=== PATIENT | female | born 1950 | race Hispanic/Latino ===

== ENCOUNTER 2021-01-13 11:00 | Inpatient (IN) | payer MEDICARE ==
[~2021-01-13] VITALS: Ht 154.9 cm; Wt 54.0 kg
[2021-01-16 13:04] LABS: BASOPHILS % (AUTO) 1.6 % (0.0-5.0); EOSINOPHILS % (AUTO) 2.6 % (0.0-8.0); HEMATOCRIT 32.7 % (36-48); LYMPHOCYTES % (AUTO) 18.7 % (21.0-51.0); MEAN CORPUSCULAR HEMOGLOBIN 31.8 pg (27.0-33.0); MEAN CORPUSCULAR HGB CONC 32.4 g/dL (32.0-36.0); MEAN CORPUSCULAR VOLUME 98.2 fL (79-99); MONOCYTES % (AUTO) 6.1 % (3.0-13.0); NEUTROPHILS % (AUTO) 70.8 % (40.0-77.0); PLATELET COUNT (AUTO) 149 K/uL (130-400); RED BLOOD CELL COUNT(AUTO) 3.33 MIL/uL (4.00-5.50); RED CELL DISTRIBUTION WIDTH 13.2 % (11.0-15.5); WHITE BLOOD COUNT (AUTO) 4.9 K/uL (4.8-10.8)
[2021-01-16 13:16] LABS: ALBUMIN 3.4 g/dL (3.5-5.0); BILIRUBIN,TOTAL 0.4 mg/dL (0.2-1.0); CREATININE 3.5 mg/dL (0.5-1.5); POTASSIUM 3.7 mmol/L (3.5-5.1); TOTAL PROTEIN, SERUM 7.1 g/dL (6.0-8.3)
[2021-01-16 13:22] LABS: INR 1.23 (0.85-1.15); PROTHROMBIN TIME 13.2 SEC (9.6-11.6)
[2021-01-16 13:23] LABS: PARTIAL THROMBOPLASTIN TIME 32.8 SEC (26.3-35.5)
[2021-01-17 12:58] VITALS: BP 165/53
[2021-01-17] MEDS ORDERED: AMLO-258 PO (13:49)
[2021-01-17] MEDS ORDERED: PRAV10TA39 PO (13:49)
[2021-01-17] MEDS ORDERED: INS7030 SQ (13:49)
[2021-01-17] MEDS ORDERED: LISI40TA9 PO (13:49)
[2021-01-17] MEDS ORDERED: AEC81 PO (13:49)
[2021-01-17] MEDS ORDERED: METO100T14 PO (13:49)
[2021-01-17] MEDS ORDERED: TRAZ-185 PO (13:49)
[2021-01-17] MEDS ORDERED: DOXE75CA3 PO (13:49)
[2021-01-17] MEDS ORDERED: LEVO112C4 PO (13:49)
[2021-01-17] MEDS ORDERED: SEVE800T7 PO (13:49)
[2021-01-17] MEDS ORDERED: TRAM50TA4 PO (13:49)
[2021-01-17] MEDS ORDERED: HYDR-4153 PO (13:49)
[2021-01-17] MEDS ORDERED: ACET-3194 PO (13:49)
[2021-01-17] MEDS ORDERED: LOPE2TAB26 PO (13:49)
[2021-01-17] MEDS ORDERED: LORA-192 PO (13:49)
[2021-01-20] VITALS (18 sets, daily range): BP systolic 130–151; BP diastolic 42–54
[2021-01-20] MEDS ORDERED: VANCOMYCIN 1G/250ML KIT 250 ML IV ONE (07:51)
[2021-01-20] MEDS ORDERED: 0.9% NACL 500ML IV.SOLN 500 ML IV ONE (07:51)
[2021-01-20] MEDS ORDERED: LIDOCAINE PF 100MG/5ML (2%) SYRINGE 5ML ONE (08:26)
[2021-01-20] MEDS ORDERED: PROPOFOL 10 MG/ML 20ML VIAL IV ONE (08:26)
[2021-01-20] MEDS ORDERED: ONDANSETRON 4MG INJ ONE (08:26)
[2021-01-20] MEDS ORDERED: ROCURONIUM 10MG/1ML SYR 10 MG/ML ML ONE ×2 (08:26→08:46)
[2021-01-20 08:27] LABS: POTASSIUM 4.4 mmol/L (3.5-5.1)
[2021-01-20] MEDS ORDERED: PHENYLEPHRINE HCL 10 MG/ML 1ML VIAL IV ONE (09:05)
[2021-01-20] MEDS ORDERED: EPHEDRINE SULFATE 50 MG/ML AMPULE ONE (09:05)
[2021-01-20] MEDS ORDERED: GLYCOPYRROLATE 1 MG/5 ML SYRINGE ONE (09:21)
[2021-01-20] MEDS ORDERED: HEPARIN 10,000 UNIT/10ML (1,000 UNIT/ML) VIAL ONE (10:09)
[2021-01-20] MEDS ORDERED: PROTAMINE SULFATE 10 MG/ML 25ML VIAL IV ONE (11:20)
[2021-01-20] MEDS ORDERED: NEOSTIGMINE 5MG/5ML SYR IV ONE (11:59)
== END 2021-01-20 14:00 | disposition home or self-care (01) | DRG 252 ==
LOC: EDSTATUS 01-16 13:00 → DAHIP 01-20 07:23 → UNDOADMIN 01-20 07:35
PROVIDERS: ADMIT Student in an Organized Health Care Education/Training Program; ATTEND Student in an Organized Health Care Education/Training Program
PROC: B5181ZA Fluoroscopy of Superior Vena Cava using Low Osmolar Contrast, Guidance (ICD-10-PCS; 2021-01-20)
PROC: B548ZZA Ultrasonography of Superior Vena Cava, Guidance (ICD-10-PCS; 2021-01-20)
PROC: 02HV33Z Insertion of Infusion Device into Superior Vena Cava, Percutaneous Approach (ICD-10-PCS; principal; 2021-01-20 08:30)
PROC: 03U Upper Arteries, Supplement (ICD-10-PCS; 2021-01-20 08:30)
DX: I72.1 Aneurysm of artery of upper extremity (principal); N18.6 End stage renal disease; I12.0 Hypertensive chronic kidney disease with stage 5 chronic kidney disease or end stage renal disease; E11.22 Type 2 diabetes mellitus with diabetic chronic kidney disease; Z20.822 Contact with and (suspected) exposure to COVID-19; Z96.649 Presence of unspecified artificial hip joint; Z79.4 Long term (current) use of insulin; Z88.0 Allergy status to penicillin; Z90.49 Acquired absence of other specified parts of digestive tract; Z80.9 Family history of malignant neoplasm, unspecified
CPT/HCPCS: 36415; 71045; 77002; 80048; 80053; 82948; 85025; 85610; 85730; 87635; 88304; 93005; A4606; C1750; G0378; J1644; J2001; J2370; J2405; J2704; J2710; J2720; J3370; J3490; J7040

== ENCOUNTER 2021-06-13 08:59 | Observation (INO) | payer MEDICARE ==
[2021-05-28 10:35] LABS: BASOPHILS % (AUTO) 2.2 % (0.0-5.0); EOSINOPHILS % (AUTO) 4.7 % (0.0-8.0); HEMATOCRIT 34.1 % (36-48); LYMPHOCYTES % (AUTO) 19.8 % (21.0-51.0); MEAN CORPUSCULAR HEMOGLOBIN 31.1 pg (27.0-33.0); MEAN CORPUSCULAR VOLUME 97.2 fL (79-99); MONOCYTES % (AUTO) 5.3 % (3.0-13.0); PLATELET COUNT (AUTO) 125 K/uL (130-400); RED BLOOD CELL COUNT(AUTO) 3.51 MIL/uL (4.00-5.50); RED CELL DISTRIBUTION WIDTH 13.6 % (11.0-15.5); WHITE BLOOD COUNT (AUTO) 5.1 K/uL (4.8-10.8)
[2021-05-28 10:47] LABS: INR 1.13 (0.85-1.15); PROTHROMBIN TIME 12.2 SEC (9.6-11.6)
[2021-05-28 10:48] LABS: PARTIAL THROMBOPLASTIN TIME 32.6 SEC (26.3-35.5)
[2021-05-28 10:54] LABS: CREATININE 4.2 mg/dL (0.5-1.5); POTASSIUM 4.9 mmol/L (3.5-5.1)
[~2021-06-13] VITALS: Ht 154.9 cm; Wt 55.5 kg
[2021-06-13] VITALS (25 sets, daily range): BP systolic 110–169; BP diastolic 41–69
[~2021-06-13 08:59] MED LIST: 0.9%NACL 1000ML 1,000 ML IV SCH; ACET-2123 PO; AEC81 PO; AMLO-258 PO; DOXE75CA3 PO; HYDR-4153 PO; INS7030 SQ; LEVO112C4 PO; LISI40TA9 PO; LOPE2TAB26 PO; LORA-192 PO; METO100T14 PO; PRAV10TA39 PO; SEVE800T7 PO; TRAM50TA4 PO; TRAZ-185 PO; VANCOMYCIN 1G/250ML KIT 250 ML IV SCH
[2021-06-13] MEDS ORDERED: VANCOMYCIN 1G/250ML KIT 250 ML IV ONE (09:11)
[2021-06-13] MEDS ORDERED: 0.9% NACL 500ML IV.SOLN 500 ML IV ONE (09:11)
[2021-06-13 09:33] LABS: POTASSIUM 4.5 mmol/L (3.5-5.1)
[2021-06-13] MEDS ORDERED: ONDANSETRON 4MG INJ ONE (10:59)
[2021-06-13] MEDS ORDERED: ROCURONIUM 10MG/1ML SYR 10 MG/ML ML ONE (10:59)
[2021-06-13] MEDS ORDERED: PROPOFOL 10 MG/ML 20ML VIAL IV ONE (10:59)
[2021-06-13] MEDS ORDERED: GLYCOPYRROLATE 1 MG/5 ML SYRINGE ONE ×2 (11:28→12:48)
[2021-06-13] MEDS ORDERED: BUPIVACAINE/PF 0.25% 30ML VIAL IJ ONE (11:31)
[2021-06-13] MEDS ORDERED: EPHEDRINE SULFATE 50 MG/ML AMPULE ONE (12:13)
[2021-06-13] MEDS ORDERED: ROPIVACAINE 0.5% 5MG/ML 30ML IJ ONE (12:44)
[2021-06-13] MEDS ORDERED: NEOSTIGMINE 5MG/5ML SYR IV ONE (12:48)
[2021-06-13] MEDS ORDERED: MEPERIDINE-PF 25 MG/ML SYG IVP PRN (17:30)
[2021-06-13] MEDS: TRAMADOL HCL 50 MG TABLET PO SCH (18:11)
[2021-06-13] MEDS ORDERED: LOPERAMIDE HCL 2 MG PO PRN (18:30)
[2021-06-13] MEDS ORDERED: LORAZEPAM 1 MG TABLET PO PRN (18:30)
[2021-06-13] MEDS ORDERED: LOPERAMIDE HCL 2 MG CAP PO PRN (19:00)
[2021-06-13] MEDS: HYDRALAZINE 25MG TABLET PO SCH (20:51)
[2021-06-13] MEDS: METOPROLOL TARTRATE 50 MG TAB PO SCH (20:51)
[2021-06-13] MEDS ORDERED: SEVELAMER CARBONATE PO SCH (21:00)
[2021-06-13] MEDS ORDERED: DOXEPIN HCL 25 MG CAP PO SCH (21:00)
[2021-06-13] MEDS ORDERED: PRAVASTATIN 10MG PO SCH (21:00)
[2021-06-13] MEDS ORDERED: NON-FORMULARY MEDICATION 1 EACH (Pravastatin Sodium 10 MG) PO SCH (21:00)
[2021-06-13] MEDS ORDERED: TRAZODONE HCL 50 MG TAB PO SCH (21:00)
[2021-06-13] MEDS ORDERED: DOXEPIN HCL 75 MG PO SCH (21:00)
[2021-06-13] MEDS ORDERED: NON-FORMULARY MEDICATION 1 EACH (Metoprolol Tartrate 100 MG) PO SCH (21:00)
[2021-06-14] VITALS (17 sets, daily range): BP systolic 153–194; BP diastolic 59–86
[2021-06-14] MEDS: TRAMADOL HCL 50 MG TABLET PO SCH ×3 (00:09→11:37)
[2021-06-14 04:13] LABS: HEMATOCRIT 32.7 % (36-48); RED BLOOD CELL COUNT(AUTO) 3.48 MIL/uL (4.00-5.50); RED CELL DISTRIBUTION WIDTH 13.7 % (11.0-15.5); WHITE BLOOD COUNT (AUTO) 6.9 K/uL (4.8-10.8)
[2021-06-14 04:47] LABS: CREATININE 4.8 mg/dL (0.5-1.5); POTASSIUM 4.9 mmol/L (3.5-5.1)
[2021-06-14] MEDS ORDERED: LEVOTHYROXINE 112 MCG TABLET PO SCH (06:30)
[2021-06-14] MEDS: SEVELAMER HCL 800 MG TABLET PO SCH ×2 (08:00→12:50)
[2021-06-14] MEDS ORDERED: ASPIRIN 81 MG EC TAB PO SCH (09:00)
[2021-06-14] MEDS: METOPROLOL TARTRATE 50 MG TAB PO SCH (09:00)
[2021-06-14] MEDS: HYDRALAZINE 25MG TABLET PO SCH ×2 (09:00→11:36)
[2021-06-14] MEDS ORDERED: NON-FORMULARY MEDICATION 1 EACH (Levothyroxine Sodium (Levothyroxine) 112 MCG) PO SCH (09:00)
[2021-06-14] MEDS ORDERED: AMLODIPINE 5 MG TAB PO SCH (09:00)
[2021-06-14] MEDS ORDERED: NON-FORMULARY MEDICATION 1 EACH (Amlodipine Besylate 10 MG) PO SCH (09:00)
[2021-06-14] MEDS ORDERED: LISINOPRIL 40 MG TABLET PO SCH (09:00)
== END 2021-06-14 18:00 | disposition home or self-care (01) ==
LOC: CANPRESDC → DAH 08:59 → DAHIP 09:00 → DAH 09:00 → 3DH 15:30
PROVIDERS: ADMIT Student in an Organized Health Care Education/Training Program; ATTEND Student in an Organized Health Care Education/Training Program
DX: K43.2 Incisional hernia without obstruction or gangrene (principal); Z20.822 Contact with and (suspected) exposure to COVID-19; I12.0 Hypertensive chronic kidney disease with stage 5 chronic kidney disease or end stage renal disease; N18.6 End stage renal disease; E11.22 Type 2 diabetes mellitus with diabetic chronic kidney disease; K66.0 Peritoneal adhesions (postprocedural) (postinfection); Z99.2 Dependence on renal dialysis; Z79.899 Other long term (current) drug therapy; Z98.890 Other specified postprocedural states
CPT/HCPCS: 36415 ×3; 49560; 49568; 80048 ×3; 82948 ×7; 85025; 85027; 85610; 85730; 87635 ×2; 88302; A4215; A4221; A4222; A4223; A4649 ×2; A4663; C1769 ×3; C1781; C9803; G0168; G0378 ×27; G0379; J2405; J2704; J2710; J2795; J3370; J3490 ×4; J7030; J7040 ×2; 71045; 90935; 93005